=== PATIENT | male | born 1980 | race African-American/Black ===

== ENCOUNTER 2016-11-23 09:55 | Emergency (ER) | payer OTHER ==
[~2016-11-23] VITALS: Ht 190.5 cm; Wt 138.0 kg
[2016-11-23] MEDS ORDERED: MORPHINE SUL30 M3 PO (10:04)
[2016-11-23] MEDS ORDERED: DILAUDID8 MG PO (10:04)
[2016-11-23] MEDS ORDERED: BACTRIM DS1 TAB PO (10:14)
[2016-11-23] MEDS ORDERED: METRONIDAZOL500 MG PO (10:14)
[2016-11-23] MEDS ORDERED: CEPHALEXIN500 M1 PO (10:14)
[2016-11-23] MEDS ORDERED: ZOFRAN4 M1 PO (10:14)
[2016-11-23 10:34] VITALS: BP 137/84
== END 2016-11-23 10:34 | disposition home or self-care (01) | DRG 603 ==
LOC: ED 09:55
DX: L05.01 Pilonidal cyst with abscess (principal)